=== PATIENT | male | born 1935 | race Caucasian/White ===

== ENCOUNTER 2018-04-05 19:33 | Emergency (ER) | payer OTHER ==
[2018-04-05 19:43] VITALS: BP 136/61; PULSE 83; TEMP 98.2; BMI 27.3
--- NOTE | 2018-04-05 19:59 | PDOC ---
History of Present Illness - General History Source: Patient Exam Limitations: No Limitations <Jad Cottrell - Last Filed: 04/05/18 19:55> - History of Present Illness Initial Comments: 04/05/18 20:26 The patient is an 83 year old male with significant past medical history of hypertension, hypercholesterolemia, afib, who presents to the emergency department today to be evaluated for a nosebleed. The patient states that he was sitting in his home (in central air conditioning) eating dinner when he blew his nose and his right nostril began bleeding for aproximately 15 minutes. He states that the bleeding stopped with nasal pressure and tilting his head back. Of note, the patient takes Eliquis twice a day. Denies history of bleeding problems. Denies any other symptoms. Allergies: ciprofloxacin, ciprofloxacin HCl Social history: None reported Surgical history: Ortho tendon sx PCP: Dr. Wilson <Fabienne Martinez - Last Filed: 04/05/18 20:44> - General Chief Complaint: Nasal Bleeding Stated Complaint: NOSEBLEED GRADES 9 12 TUTOR Time Seen by Provider: 04/05/18 19:34 Past History - Past Medical History Cardiac Disorders: Yes (AFIB) COPD: No HTN: Yes Hypercholesterolemia: Yes - Immunization History Td Vaccination: Yes Immunization Up to Date: Yes - Suicide/Smoking/Psychosocial Hx Smoking Status: Yes Smoking History: Unknown if ever smoked Have you smoked in the past 12 months: No Number of Cigarettes Smoked Daily: 0 Information on smoking cessation initiated: No <Jad Cottrell - Last Filed: 04/05/18 19:55> <Fabienne Martinez - Last Filed: 04/05/18 20:44> - Past Medical History Allergies/Adverse Reactions: Allergies Allergy/AdvReac Type Severity Reaction Status Date / Time ciprofloxacin [From Cipro] Allergy Verified 03/10/12 20:56 ciprofloxacin HCl Allergy Verified 03/10/12 20:56 [From Cipro] Home Medications: Ambulatory Orders Apixaban [Eliquis] 5 mg PO BID 03/10/12 Atenolol [Tenormin] 50 mg PO DAILY 03/10/12 Atorvastatin Ca [Lipitor] 80 mg PO HS 03/10/12 Eplerenone [Inspra] 25 mg PO DAILY 03/10/12 Furosemide [Lasix -] 20 mg PO DAILY 03/10/12 Mesalamine [Asacol Hd -] 1,200 mg PO TID 03/10/12 Rabeprazole Sodium [Aciphex] 20 mg PO DAILY 03/10/12 Ramipril [Altace] 2.5 mg PO DAILY 03/10/12 Oxymetazoline HCl [Afrin] 1 spray NS ONCE PRN #1 spray 04/05/18 Review of Systems - Review of Systems Able to Perform ROS?: Yes Comments:: 04/05/18 20:10 GENERAL/CONSTITUTIONAL: No fever or chills. No weakness. HEAD, EYES, EARS, NOSE AND THROAT: (+)Nosebleed. No change in vision. No ear pain or discharge. No sore throat. CARDIOVASCULAR: No chest pain or shortness of breath. RESPIRATORY: No cough, wheezing, or hemoptysis. GASTROINTESTINAL: No nausea, vomiting, diarrhea or constipation. GENITOURINARY: No dysuria, frequency, or change in urination. MUSCULOSKELETAL: No joint or muscle swelling or pain. No neck or back pain. SKIN: No rash NEUROLOGIC: No headache, vertigo, loss of consciousness, or change in strength/ sensation. ENDOCRINE: No increased thirst. No abnormal weight change. HEMATOLOGIC/LYMPHATIC: No anemia, easy bleeding, or history of blood clots. ALLERGIC/IMMUNOLOGIC: No hives or skin allergy. <Fabienne Martinez - Last Filed: 04/05/18 20:44> *Physical Exam - Vital Signs Last Vital Signs Temp Pulse Resp BP Pulse Ox 98.2 F 83 18 136/61 97 04/05/18 19:35 04/05/18 19:35 04/05/18 19:35 04/05/18 19:35 04/05/18 19:35 <Jad Cottrell - Last Filed: 04/05/18 19:55> - Vital Signs Last Vital Signs Temp Pulse Resp BP Pulse Ox 98.2 F 83 18 136/61 97 04/05/18 19:35 04/05/18 19:35 04/05/18 19:35 04/05/18 19:35 04/05/18 19:35 - Physical Exam Comments: 04/05/18 20:08 GENERAL: Awake, alert, and fully oriented, in no acute distress HEAD: No signs of trauma EYES: PERRLA, EOMI, sclera anicteric, conjunctiva clear ENT: (+)Mildly irradiated right anterior nasal septum. No active or pinpoint bleeding. Auricles normal inspection, hearing grossly normal, nares patent, oropharynx clear without exudates. Moist mucosa NECK: Normal ROM, supple, no lymphadenopathy, JVD, or masses EXTREMITIES: Normal range of motion, no edema. No clubbing or cyanosis. No cords, erythema, or tenderness NEUROLOGICAL: Cranial nerves II through XII grossly intact. Normal speech, normal gait SKIN: Warm, Dry, normal turgor, no rashes or lesions noted. <Fabienne Martinez - Last Filed: 04/05/18 20:44> Medical Decision Making - Medical Decision Making 04/05/18 19:55 A portion of this note was written by my scribe, under my supervision. 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 Approx 30 minutes prior to arrival, the patient was indoors and blew his nose. Started noticing bleeding from right nostril that resolved approx 15 min prior to arrival. Has no symptoms now and feels well. Denies difficulty breathing. At this point, no intervention needed. No active bleeding. I advised the patient to continue taking eliquis and to take caution when blowing nose. Given he is on an anticoagulant, I advised patient that if nose bleeds again and unable to control it, he should return to the ER. Pt feels comfortable and would like to go home. Discharge diagnosis: epistaxis. <Jad Cottrell - Last Filed: 04/05/18 19:55> *DC/Admit/Observation/Transfer - Discharge Dispostion Decision to Admit order: No <Jad Cottrell - Last Filed: 04/05/18 19:55> - Attestations Scribe Attestion: 04/05/18 20:26 Documentation prepared by Fabienne Martinez, acting as pediatric medical assistant for Jad Cottrell MD. <Fabienne Martinez - Last Filed: 04/05/18 20:44> Diagnosis at time of Disposition: Epistaxis - Discharge Dispostion Disposition: HOME Condition at time of disposition: Stable - Prescriptions Prescriptions: Oxymetazoline HCl [Afrin] 1 spray NS ONCE PRN #1 spray PRN Reason: Epistaxis - Referrals Referrals: Aaron Wilson [Primary Care Provider] - - Patient Instructions Printed Discharge Instructions: DI for Nosebleed Additional Instructions: Continue all of your medications. Be cautious about blowing your nose. If you start to bleed again, use a spray of afrin and pinch your nose for 15 minutes. If you are unable to control your bleeding, please return to the ER for further evaluation. - Post Discharge Activity
== END 2018-04-05 20:03 | disposition home or self-care (01) ==
LOC: FER 19:33
DX: R04.0 Epistaxis (principal); I10 Essential (primary) hypertension; E78.00 Pure hypercholesterolemia, unspecified; I48.91 Unspecified atrial fibrillation; Z79.01 Long term (current) use of anticoagulants
CPT/HCPCS: 99281-25

== ENCOUNTER 2021-12-26 07:40 | Emergency (ER) | payer OTHER ==
[2021-12-26] MEDS ORDERED: OXYMETAZOLINE 0.05% NASAL SOLUTION 15 ML BOTTLE NS ONE (07:45)
[2021-12-26 08:18] VITALS: TEMP 97.6; BMI 24.9
[2021-12-26] MEDS ORDERED: SILVER NITRATE 75% APPLIC STCK 1 PKT EACH TP ONE (09:08)
[2021-12-26] MEDS ORDERED: SILVER NITRATE 75% APPLIC STCK 1 PKT EACH ONE ×2 (09:15→12:54)
[2021-12-26 09:35] VITALS: BP 131/42; PULSE 71
== END 2021-12-26 13:39 ==
LOC: JER 07:40
DX: R04.0 Epistaxis (principal)
CPT/HCPCS: 99283-25